=== PATIENT | male | born 1980 | race Two or more races ===

== ENCOUNTER 2019-07-21 03:05 | Emergency (ER) | payer OTHER ==
[~2019-07-21] VITALS: Ht 188 cm; Wt 87.1 kg
[2019-07-21] MEDS ORDERED: AMOX-CLAV 875-1 EACH PO (03:30)
[2019-07-21] MEDS ORDERED: KETO10TA2 PO (03:30)
== END 2019-07-21 04:28 | disposition home or self-care (01) ==
LOC: ER 03:05
DX: J03.80 Acute tonsillitis due to other specified organisms (principal)